=== PATIENT | female | born 2000 | race Caucasian/White ===

== ENCOUNTER 2022-01-31 18:35 | Emergency (ER) | payer OTHER ==
[2022-01-31 19:10] LABS: BASOPHILS % (AUTO) 0.3 %; EOSINOPHILS # (AUTO) 0.4 10^3/uL (0.0-0.7); EOSINOPHILS % (AUTO) 4.5 %; HCT - HEMATOCRIT 38.5 % (37.0-47.0); LYMPHOCYTES % (AUTO) 25.5 %; MEAN CORPUSCULAR HEMOGLOBIN 30.9 pg (27.0-31.0); MEAN CORPUSCULAR HGB CONC 33.8 g/dL (32.0-36.0); MEAN CORPUSCULAR VOLUME 91.4 fL (81.0-99.0); MEAN PLATELET VOLUME 11.2 fL (7.9-10.8); MONOCYTES # (AUTO) 0.6 10^3/uL (0.0-1.0); MONOCYTES % (AUTO) 8.2 %; NEUTROPHILS # (AUTO) 4.8 10^3/uL (1.5-6.6); NEUTROPHILS % (AUTO) 61.2 %; PLT - PLATELET COUNT 209 10^3/uL (130-450); RED BLOOD COUNT 4.21 10^6/uL (4.20-5.40); RED CELL DISTRIBUTION WIDTH 12.7 % (12.0-15.0); WHITE BLOOD COUNT 7.8 x10^3/uL (4.8-10.8)
[2022-01-31 19:23] LABS: ALBUMIN 4.6 g/dL (3.2-5.5); ALBUMIN/GLOBULIN RATIO 1.3 (1.0-2.2); ALKALINE PHOSPHATASE 66 IU/L (42-121); ALT ALANINE AMINOTRANSFERASE < 10 IU/L (10-60); AST ASPARTATE AMINOTRANSFERASE 15 IU/L (10-42); BILIRUBIN,TOTAL 0.6 mg/dL (0.2-1.0); BUN - BLOOD UREA NITROGEN 15 mg/dL (6-20); CALCIUM 9.6 mg/dL (8.5-10.3); CARBON DIOXIDE - CO2 23 mmol/L (21-32); CHLORIDE 101 mmol/L (101-111); CREATININE 0.5 mg/dL (0.4-1.0); GFR - MDRD 152 (>89); GLUCOSE 90 mg/dL (70-100); LIPASE 34 U/L (22-51); POTASSIUM 3.7 mmol/L (3.5-5.0); SODIUM 135 mmol/L (135-145); TOTAL PROTEIN 8.1 g/dL (6.7-8.2)
[2022-01-31 19:25] LABS: HCG UR QUAL POSITIVE
--- NOTE | 2022-01-31 20:32 | ED Physician Documentation ---
History of Present Illness - Stated complaint Stated Complaint: CRAMPING/6WKS - Chief complaint Chief Complaint: Abd Pain - History obtained from History obtained from: Patient - History of Present Illness Timing: Today Pain level max: 2 - Additonal information Additional information: Patient is a 22-year-old female 2 para 1 who presents to the emergency department with vaginal bleeding today. Minimal pelvic cramping. Nothing makes it better or worse. No trauma Review of Systems Constitutional: denies: Fever, Chills GI: denies: Nausea, Vomiting, Diarrhea Skin: denies: Rash Musculoskeletal: denies: Neck pain, Back pain Neurologic: denies: Headache PD PAST MEDICAL HISTORY - Past Medical History Past Medical History: No - Past Surgical History Past Surgical History: No - Present Medications Home Medications: Ambulatory Orders Medication Instructions Recorded Confirmed No Known Home Medications 01/31/22 01/31/22 - Allergies Allergies/Adverse Reactions: Allergies Allergy/AdvReac Type Severity Reaction Status Date / Time No Known Drug Allergies Allergy Verified 01/31/22 18:44 PD ED PE NORMAL - Vitals Vital signs reviewed: Yes - General General: Alert and oriented X 3, No acute distress - HEENT HEENT: Moist mucous membranes - Neck Neck: Supple, no meningeal sign - Cardiac Cardiac: RRR - Respiratory Respiratory: No respiratory distress, Clear bilaterally - Abdomen Abdomen: Soft, Non tender, Non distended - Derm Derm: Warm and dry - Extremities Extremities: No edema - Neuro Neuro: Alert and oriented X 3 - Psych Psych: Normal mood, Normal affect Results - Vitals Vitals: Vital Signs - 24 hr 01/31/22 01/31/22 18:40 20:44 Temperature 36.7 C 37.3 C Heart Rate 113 H 103 H Respiratory 16 18 Rate Blood Pressure 117/72 119/71 O2 Saturation 98 99 Oxygen O2 Source Room air - Labs Labs: Laboratory Tests 01/31/22 01/31/22 01/31/22 19:05 19:05 19:05 WBC 7.8 RBC 4.21 Hgb 13.0 Hct 38.5 MCV 91.4 MCH 30.9 MCHC 33.8 RDW 12.7 Plt Count 209 MPV 11.2 H Neut # (Auto) 4.8 Lymph # (Auto) 2.0 Mcleod # (Auto) 0.6 Eos # (Auto) 0.4 Baso # (Auto) 0.0 Absolute Nucleated RBC 0.00 Nucleated RBC % 0.0 Sodium 135 Potassium 3.7 Chloride 101 Carbon Dioxide 23 Anion Gap 11.0 BUN 15 Creatinine 0.5 Estimated GFR (MDRD) 152 Glucose 90 Calcium 9.6 Total Bilirubin 0.6 AST 15 ALT < 10 L Alkaline Phosphatase 66 Total Protein 8.1 Albumin 4.6 Globulin 3.5 Albumin/Globulin Ratio 1.3 Lipase 34 HCG, Quant Urine Color Urine Clarity Urine pH Ur Specific Martelle Urine Protein Urine Glucose (UA) Urine Ketones Urine Occult Blood Urine Nitrite Urine Bilirubin Urine Urobilinogen Ur Leukocyte Esterase Urine RBC Urine WBC Ur Squamous Epith Cells Urine Bacteria Ur Microscopic Review Urine Culture Comments Urine HCG, Qual Blood Type B POSITIVE 01/31/22 01/31/22 01/31/22 19:05 19:20 19:20 WBC RBC Hgb Hct MCV MCH MCHC RDW Plt Count MPV Neut # (Auto) Lymph # (Auto) Mcleod # (Auto) Eos # (Auto) Baso # (Auto) Absolute Nucleated RBC Nucleated RBC % Sodium Potassium Chloride Carbon Dioxide Anion Gap BUN Creatinine Estimated GFR (MDRD) Glucose Calcium Total Bilirubin AST ALT Alkaline Phosphatase Total Protein Albumin Globulin Albumin/Globulin Ratio Lipase HCG, Quant 283354.00 Urine Color YELLOW Urine Clarity HAZY Urine pH 6.0 Ur Specific Martelle 1.025 Urine Protein NEGATIVE Urine Glucose (UA) NEGATIVE Urine Ketones NEGATIVE Urine Occult Blood LARGE H Urine Nitrite NEGATIVE Urine Bilirubin NEGATIVE Urine Urobilinogen 0.2 (NORMAL) Ur Leukocyte Esterase NEGATIVE Urine RBC 6-10 H Urine WBC 0-3 Ur Squamous Epith Cells FEW Squamous Urine Bacteria Few Ur Microscopic Review INDICATED Urine Culture Comments NOT INDICATED Urine HCG, Qual POSITIVE Blood Type - Rads (name of study) OB US Radiology: Final report received, EMP read contemporaneously, See rad report PD MEDICAL DECISION MAKING - ED course Complexity details: reviewed results, re-evaluated patient, considered differential, d/w patient ED course: 22-year-old female 2 para 1 with vaginal bleeding today. This appears to be likely secondary to a subchorionic hematoma. I will have her follow-up with her OB/mine shifter for further care. Patient is well-appearing, nontoxic. Afebrile. No indication of infection. No indication of ectopic . Patient counseled regarding signs and symptoms for which I believe and urgent re-evaluation would be necessary. Patient with good understanding of and a greement to plan and is comfortable going home at this time This document was made in part using voice recognition software. While efforts are made to proofread this document, sound alike and grammatical errors may occur. FINDINGS: Embryo: There is an intrauterine with a gestational sac, yolk sac, and pole identified. The crown-rump length measures 2.4 cm corresponding to 3 additional age of 9 weeks 1 day and estimated delivery date of 09/04/2022. There is heart motion with a rate of 178 bpm. There is a crescentic heterogeneously hypoechoic region adjacent to the gestational sac measuring up to 5.9 x 2.2 x 3.4 cm consistent with a subchorionic hematoma. Measurement variability in dating: +/- 4 weeks by LMP, +/- 7 days by mean sac diameter (use before 6 weeks gestation if crown-rump length not able to be measured), +/- 5 days by crown-rump length (6- 12 weeks gestation). Maternal organs: The ovaries appear within normal size limits. There is a thick- walled cyst within the left ovary measuring up to 2.2 cm consistent with a corpus luteal cyst. IMPRESSION: 1. Single living intrauterine with calculated gestational age of 9 weeks 1 day corresponding to an estimated delivery date of 09/04/2022. 2. Perigestational hypoechoic region consistent with a subchorionic hematoma. Recommend follow-up clinically and a repeat ultrasound if indicated. 3. Probable corpus luteal cyst within the left ovary. Departure - Departure Disposition: 01 Home, Self Care Clinical Impression: Vaginal bleeding affecting early Condition: Good Instructions: ED Miscarriage Poss [facility]Up: [facility] [Provider Group] Comments: Please follow-up with your OB and/or mine shifter for further care. You appear to have a subchorionic hematoma. They may want to repeat an ultrasound in 1 week. Your ultrasound results are below. FINDINGS: Embryo: There is an intrauterine with a gestational sac, yolk sac, and pole identified. The crown-rump length measures 2.4 cm corresponding to 3 additional age of 9 weeks 1 day and estimated delivery date of 09/04/2022. There is heart motion with a rate of 178 bpm. There is a crescentic heterogeneously hypoechoic region adjacent to the gestational sac measuring up to 5.9 x 2.2 x 3.4 cm consistent with a subchorionic hematoma. Measurement variability in dating: +/- 4 weeks by LMP, +/- 7 days by mean sac diameter (use before 6 weeks gestation if crown-rump length not able to be measured), +/- 5 days by crown-rump length (6- 12 weeks gestation). Maternal organs: The ovaries appear within normal size limits. There is a thick- walled cyst within the left ovary measuring up to 2.2 cm consistent with a corpus luteal cyst. IMPRESSION: 1. Single living intrauterine with calculated gestational age of 9 weeks 1 day corresponding to an estimated delivery date of 09/04/2022. 2. Perigestational hypoechoic region consistent with a subchorionic hematoma. Recommend follow-up clinically and a repeat ultrasound if indicated. 3. Probable corpus luteal cyst within the left ovary. Discharge Date/Time: 01/31/22 21:11
[2022-01-31 20:38] LABS: BILIRUBIN,URINE NEGATIVE (NEGATIVE); GLUCOSE, URINE (UA) NEGATIVE (NEGATIVE); KETONES,URINE (UA) NEGATIVE (NEGATIVE); LEUKOCYTE ESTERASE, URINE NEGATIVE (NEGATIVE); NITRITE,URINE NEGATIVE (NEGATIVE); OCCULT BLOOD,URINE LARGE (NEGATIVE); PROTEIN,URINE NEGATIVE (NEGATIVE); UROBILINOGEN,URINE 0.2 (NORMAL) E.U./dL (NORMAL)
[2022-01-31 20:43] LABS: CLARITY,URINE HAZY (CLEAR)
--- NOTE | 2022-01-31 20:43 | Ultrasound Report ---
PROCEDURE: OB First Trimester INDICATIONS: 6 WEEK PREG, VB OUTSIDE/PRIOR DATING DATA: Last menstrual period (LMP): Unsure. First dating scan (date and location): 01/31/2022. Estimated date of delivery (GAMAL) from first dating scan: 09/04/2022. TECHNIQUE: Real-time scanning was performed of the fetus and maternal pelvic organs, with image documentation. COMPARISON: None. FINDINGS: Embryo: There is an intrauterine with a gestational sac, yolk sac, and pole identifi ed. The crown-rump length measures 2.4 cm corresponding to 3 additional age of 9 weeks 1 day and simran mated delivery date of 09/04/2022. There is heart motion with a rate of 178 bpm. There is a crescentic heterogeneously hypoechoic region adjacent to the gestational sac measuring up to 5.9 x 2.2 x 3.4 cm consistent with a subchorionic hematoma. Measurement variability in dating: +/- 4 weeks by LMP, +/- 7 days by mean sac diameter (use before 6 weeks gestation if crown-rump length not able to be measured), +/- 5 days by crown-rump length (6-12 weeks gestation). Maternal organs: The ovaries appear within normal size limits. There is a thick-walled cyst within th e left ovary measuring up to 2.2 cm consistent with a corpus luteal cyst. IMPRESSION: 1. Single living intrauterine with calculated gestational age of 9 weeks 1 day correspondin g to an estimated delivery date of 09/04/2022. 2. Perigestational hypoechoic region consistent with a subchorionic hematoma. Recommend follow-up cli nically and a repeat ultrasound if indicated. 3. Probable corpus luteal cyst within the left ovary. Reviewed by: Diego Calderon MD on 01/31/2022 8:42 PM PDT Approved by: Diego Calderon MD on 01/31/2022 8:42 PM PDT Station ID: [id number]
[2022-01-31 20:57] VITALS: BP 119/71
[2022-01-31 21:02] LABS: WBC,URINE 0-3 /HPF (0-5)
[2022-01-31 21:03] LABS: BACTERIA,URINE Few /HPF (None Seen); SQUAMOUS EPITHELIAL CELL,UR FEW Squamous (<= Few)
== END 2022-01-31 21:11 | disposition home or self-care (01) ==
LOC: ED 18:35
DX: O20.9 Hemorrhage in early pregnancy, unspecified (principal); Z3A.09 9 weeks gestation of pregnancy
CPT/HCPCS: 36415; 80053; 81001; 81003; 81025; 83690; 84702; 85025; 86900; 86901; 87086; 99282; 99284

== ENCOUNTER 2022-08-18 16:55 | Outpatient (CLI) | payer OTHER ==
--- NOTE | 2022-08-18 18:38 | Ultrasound Report ---
PROCEDURE: OB F/U or Repeat INDICATIONS: IUGR,SGA OUTSIDE/PRIOR DATING DATA: Last menstrual period (LMP): Unsure. LMP-based estimated date of delivery (GAMAL): Unsure. First dating scan (date and location): 01/31/2022. Estimated date of delivery (GAMAL) from first dating scan: 09/04/2022. The below data below was generated using the ultrasound GAMAL of 09/04/2022 TECHNIQUE: Real-time scanning was performed of the fetus, with image documentation and biometric measurements. COMPARISON: None. FINDINGS: General: A single living intrauterine gestation is present. Presentation: Vertex Placenta: Placental position is fundal/posterior, without previa. Amniotic fluid index: 13.1 cm, normal for gestational age. heart rate: 147 beats per minute. Maternal cervical canal: Not identified biometrics: Biparietal diameter: 8.6 cm. 34 weeks 4 days Head circumference: 31.7 cm. 35 weeks 5 days Abdominal circumference: 31.6 cm. 35 weeks 4 days. Femur length: 6.7 cm. 34 weeks 2 days. Estimated gestational age from initial scan: 37 weeks 4 days Composite gestational age from present scan: 35 weeks 0 days Estimated weight and percentile: 2602.5 g. 8.6 percentile Measurement variability in biometric dating: +/- 10 days from 12-20 weeks gestation, +/- 2 weeks from 20-30 weeks gestation, +/- 3 weeks at 30 weeks gestation or more. SD ratios: 2.6, 2.7, 3.1 IMPRESSION: 1. Estimated gestational age by initial scan 37 weeks 4 days. Estimated gestational age from current scan 35 weeks 0 days. 2. Estimated weight 2602.5 g, 8.6th percentile. 3. Normal SD ratios. Reviewed by: Jorge Reina on 08/18/2022 6:37 PM PDT Approved by: Jorge Reina on 08/18/2022 6:37 PM PDT Station ID: [id number]
--- NOTE | 2022-08-18 18:40 | Ultrasound Report ---
PROCEDURE: OB Biophysical Profile INDICATIONS: IUGR, SGA Biophysical profile: Tone: 2 points. Movement: 2 points. Respiration: 2 points. Largest pocket of fluid: 2 points. Umbilical artery Doppler: At placenta, 2.6. At mid 2.7. At abdomen 3.1. IMPRESSION: Normal biophysical profile. Reviewed by: Joreg Reina on 08/18/2022 6:39 PM PDT Approved by: Jorge Reina on 08/18/2022 6:39 PM PDT Station ID: [id number]
== END 2022-08-18 16:56 | disposition home or self-care (01) ==
LOC: DI 16:55
PROVIDERS: ATTEND Midwife
DX: O36.5990 Maternal care for other known or suspected poor fetal growth, unspecified trimester, not applicable or unspecified (principal); Z3A.35 35 weeks gestation of pregnancy